=== PATIENT | female | born 1960 | race Caucasian/White ===

== ENCOUNTER 2016-12-31 11:19 | Outpatient (CLI) | payer OTHER ==
--- NOTE | 2017-01-02 14:26 | DIAGNOSTIC IMAGING REPORT ---
PROCEDURE: NM CARDIAC STRESS TEST INDICATION: Chest pressure TECHNIQUE: 10 mCi technetium 99m labeled sestamibi used for rest imaging 31 mCi for stress imaging. Please see separately dictated treadmill test report. Report which I reviewed indicating that portion of the study was normal and the patient achieved 88% of age-predicted maximum heart rate. COMPARISON: None FINDINGS: SPECT imaging shows a minimal mid anterior defect which is present on both rest and stress images. As only apparent on the short axis images and on the other images. This is suggestive artifact. Some stress score is zero. Gated SPECT imaging shows ejection fraction 74% end-diastolic volume 57 ml end-systolic volume 15 ml and normal wall thickening and wall motion. IMPRESSION: No infarct or ischemia Normal left ventricular size, ejection fraction, wall thickening and wall motion. Low risk study.
== END 2016-12-31 23:00 ==
LOC: NM SRH 11:19
DX: R07.89 Other chest pain (principal)